=== PATIENT | female | born 1980 | race Caucasian/White ===

== ENCOUNTER → 2021-12-18 01:55 | Outpatient (CLI) | payer MEDICAID, SELFPAY ==
--- NOTE | 2021-12-18 08:06 | DI.CT_ITS ---
Exam(s) CT TEMPORAL BONE W EXAM: CT TEMPORAL BONE W CLINICAL HISTORY: Growth on TM, right,D49.2,H93.299. TECHNIQUE: Imaging Protocol: Axial computed tomography images with coronal and sagittal reformatted images were created and reviewed. CONTRAST MATERIAL: Intravenous: Omnipaque 350 Contrast volume:100 mL Oral: No COMPARISON: No exams were available for comparison FINDINGS: Right Temporal Bone: The cochlea and semicircular canals are unremarkable. The facial nerve canal is well maintained. Th e internal auditory canal is within normal limits. The middle ear ossicles are unremarkable. The sc utum and tegmen are within normal limits. There is a 0.4 x 0.4 cm soft tissue mass on the external s patricia of the right tympanic membrane. The external auditory canal and mastoid air cells are normal. The carotid canal and jugular foramen a re within normal limits. The temporomandibular joint is unremarkable. Left Temporal Bone: The cochleae and semicircular canals are unremarkable. The facial nerve canal is well maintained. T he internal auditory canal is within normal limits. The middle ear ossicles are unremarkable. The s cutum and tegmen are within normal limits. The external auditory canal and mastoid air cells are normal. The carotid canal and jugular foramen a re within normal limits. The temporomandibular joint is unremarkable. There is complete opacification of the left maxillary sinus. There is thickening of the wall of the left maxillary sinus. The findings are suggestive of chronic sinus disease. There is opacification of several left ethmoid air cells. The remaining visualized paranasal sinuses are clear. IMPRESSION: 0.4 x 0.4 cm soft tissue mass on the EAC side of the right tympanic membrane. Differential considera tions include keratosis opt to rinse, medial canal fibrosis, benign debris, or neoplasm. RADIATION DOSE DELIVERED: 359.06mGy.cm Total DLP DATA REPOSITORY: All CT scans at this facility are submitted to the National Radiology Data Registry (NRDR) Dose Index Registry (DIR) with the [employer] (A[employer]). RADIATION OPTIMIZATION: All CT scans at this facility use at least one of these dose optimization te chniques: automated exposure control; mA and/or kV adjustment per patient size (includes targeted exa ms where dose is matched to clinical indication); or iterative reconstruction.
[2021-12-18] MEDS: Omnipaque 350 MG/ML 100 ML BTL IJ (15:53)
[2021-12-18] MEDS: Normal Saline Flush 10 ML SYR IVP (15:54)
== END ==
PROVIDERS: PCP Family Medicine; Visit Provider Registered Nurse Maternal Newborn
DX: D49.2 Neoplasm of unspecified behavior of bone, soft tissue, and skin (principal)
CPT/HCPCS: 70481; J3490

== ENCOUNTER 2022-02-11 08:12 | Day surgery (SDC) | payer MEDICAID, SELFPAY ==
[2022-02-11] VITALS (10 sets, daily range): BP systolic 121–137; BP diastolic 78–105; PULSE 82–98; RESP 8–20; TEMP 36.7–36.8; O2SAT 94–99; BMI 29.9
[2022-02-11] MEDS: Lactated Ringers 1,000 ML 100 ML IV (09:50)
--- NOTE | 2022-02-11 10:28 | W.ANESPRE ---
General Info Date of Service Date Performed: 02/11/22 Height: 5 ft 8 in Weight: 89.5 kg Body Mass Index (BMI): 29.9 Surgical Procedure: Operation Date: 02/11/22 11:25 Proposed Procedure Side Surgeon p Excision of Ear Drum Mass Right Miguel Salgado MD Meds Allergies and Home Medications Allergies Allergy/AdvReac Type Severity Reaction Status Date / Time amitriptyline Allergy irritabiltiy, Verified 02/11/22 08:57 fatigue codeine Allergy rash Verified 02/11/22 08:57 ethinyl estradiol Allergy Verified 02/11/22 08:57 [From Seasonale ()] guaifenesin [From Robitussin] Allergy nausea, Verified 02/11/22 08:57 itching levonorgestrel Allergy Verified 02/11/22 08:57 [From Seasonale ()] morphine Allergy Verified 02/11/22 08:57 prednisone Allergy irritabilit Verified 02/11/22 08:57 y acetaminophen [From Vicodin] AdvReac Severe Nausea, Unverified 02/11/22 08:57 Rash hydrocodone bitartrate AdvReac Severe Nausea, Unverified 02/11/22 08:57 [From Vicodin] Rash pregabalin [From Lyrica] AdvReac Severe Nausea Unverified 02/11/22 08:57 latex AdvReac Intermediate RAsh Unverified 02/11/22 08:57 anesthetic Allergy Uncoded 02/11/22 08:57 Home Medication Medication Instructions Recorded albuterol sulfate 90 mcg/actuation 2 puff inhalation Q4H PRN 11/14/21 aerosol inhaler escitalopram oxalate 10 mg tablet 10 mg PO DAILY 11/14/21 (Lexapro) escitalopram oxalate 5 mg tablet 5 mg PO DAILY 11/14/21 famotidine [Pepcid AC Maximum PO DAILY 11/14/21 Strength] fluticasone propionate 50 1 spray intranasal DAILY 11/14/21 mcg/actuation nasal spray,suspension ibuprofen 200 mg tablet (Advil) 200 mg PO Q6H PRN 11/14/21 levonorgestrel 20 mcg/24 hours (8 1 device intrauterine ONCE 11/14/21 yrs) 52 mg intrauterine device (Mirena) methylphenidate HCl 10 mg tablet 10 mg PO BID 11/14/21 (Ritalin) multivitamin 1 tab PO DAILY 11/14/21 omeprazole 40 mg capsule,delayed 40 mg PO DAILY PRN 11/14/21 release sumatriptan 20 mg/actuation nasal 20 mg intranasal Q2H 11/14/21 spray albuterol sulfate 90 mcg/actuation inhalation 02/08/22 aerosol inhaler (ProAir HFA) timolol maleate 0.5 % eye drops 2 drp HS 02/08/22 Current Visit Medications: Current Medications Generic Name Dose Route Start Last Admin Trade Name Lenka PRN Reason Stop Dose Admin Tranexamic Acid 1,000 mg/ 60 mls @ 360 mls/hr 02/11/22 06:00 Sodium Chloride IVPB 02/11/22 16:00 DIRECTED DAMION Ringer's Solution 1,000 mls @ 100 mls/hr 02/11/22 09:46 02/11/22 09:50 IV 100 mls/hr INFUSION DAMION Administration IV Miscellaneous Supplies 1 each 02/11/22 06:00 Iv Access IV 03/10/22 23:59 DIRECTED DAMION Sodium Chloride 0 ml 02/11/22 06:00 Normal Saline Flush 10 Ml Syr IV 03/10/22 23:59 PRN PRN Sodium Chloride 0 ml 02/11/22 06:00 Normal Saline 10 Ml Vial IJ 03/10/22 23:59 DIRECTED PRN Sterile Water 0 ml 02/11/22 06:00 Water,Injection,Sterile 10 Ml Vial IJ 03/10/22 23:59 DIRECTED PRN PFSH Active Problems Active Problems: Problem Status Onset Code Growth of ear canal D49.2 Abnormal auditory perception H93.299 Mass of right ear H93.8X1 Medical History Medical History ADD (attention deficit disorder) Alcohol abuse Amenorrhea Anxiety Bacterial meningitis Chest pain Chronic recurrent pilonidal cyst Chronic right shoulder pain Depression DVT (deep vein thrombosis) in Fibrocystic breast disease (FCBD) in female GERD (gastroesophageal reflux disease) H/O abnormal cervical Papanicolaou smear H/O drug abuse recovery 2013 H/O multiple concussions H/O suicide attempt Insomnia Migraine OCD (obsessive compulsive disorder) Palpitations Perianal cyst Placenta previa PTSD (post-traumatic stress disorder) Rubella Seizure disorder Seizures Pt reports resolved; related to Stress/lack of sleep; last in 2014 SOB (shortness of breath) SVT (supraventricular tachycardia) UTI (urinary tract infection) Medical History Comments:: 3xweek, Cong gordon Surgical History Surgical History Biopsy of breast (~2004) Reports > 20 surgeries to breasts during the time from 8512-6388. 20 surgeries to right breast. 2 surgeries to left breast. Multiple surgeries to remove cysts, clear out ducts, repair fistules. Surgeries at [facility], [facility]. Excision, Pilonidal Cyst H/O section H/O dilation and curettage H/O partial mastectomy History of excision of pilonidal cyst Tobacco Smoking/Tobacco Use Status: Current every day Tobacco Type: cigarettes Smoking packs per day: 0.5 Smoking cigarettes per day: 10.0 Alcohol Alcohol Intake: current Alcohol intake frequency: holidays/special occasions only Substance Use Substance use: Occasionally Substance use type: marijuana Details: 3xweek Vital Signs and Lab Results Vital Signs Most Recent Vital Signs in EMR: Most Recent Vital Signs Temp Pulse Resp BP Pulse Ox 36.7 C 91 H 16 130/105 H 97 02/11/22 09:00 02/11/22 09:00 02/11/22 09:00 02/11/22 09:00 02/11/22 09:00 Point of Care Results Point of Care Results: POC- Test(urine) Negative 02/11/22 09:30 Lab Results Blood Type / Crossmatch: No Data to Display Complete Blood Count: No Data to Display Complete Metabolic Panel: No Data to Display Liver Function Panel: No Data to Display Coagulation Panel: No Data to Display Cardiac Panel: No Data to Display Arterial Blood Gas: No Data to Display Venous Blood Gas: No Data to Display Pancreas Panel: No Data to Display Thyroid Panel: No Data to Display Infectious Disease: No Data to Display Blood Cultures: No Data to Display Toxicology Panel: No Data to Display Panel: No Data to Display Anesthesia Assessment and Plan Anesthesia History Personal History: No History of Anesthesia Complications Family History: No Family History of Anesthesia Complications Exercise Tolerance Exercise Tolerance: Metabolic Equivalents>4 Cardiac & Pulmonary Exam Cardiac Exam: Normal S1/S2 Heart Sounds Pulmonary Exam: Clear Bilateral Breath Sounds Implantable Cardiac Device Does patient have a Pacemaker or an ICD?: No Airway Exam Known Difficult Airway: No Mallampati Class: 3 Mouth Opening: Narrow (< 3cm) Thyromental Distance: Greater than 3 cm Neck Range of Motion: Full ROM Neck Circumference: Normal Teeth Condition: Normal Dentition ASA Classification ASA Score: ASA 2 Emergency Case?: No NPO Status NPO Status: NPO Clears >2 hours, Solids >8 hours Status Status: Negative HCG Anesthesia Plan Resuscitation Status: Full Code Anesthesia Technique: General Anesthesia Airway Planned: LMA Monitors Used: Standard Monitors Preoperative Comments:: 41 yo female for removal of ear drum mass. Sig PMHx: ADD/anxiety, DVT with preg, GERD (well controlled), former drug abuse, sz (due to lack of sleep and stress a few years ago, no factor currently), SVT/palpitations, current cannabis/tobacco smoker, occ EtOH.
--- NOTE | 2022-02-11 11:27 | ENT_PTH ---
PATIENT: Paulette Fonseca LOC: [facility] U#:[id number] AGE/SX: 41/F ROOM: RE02/11/[address]: Miguel Salgado MD : 1980 BED: DIS: 02/11/2022 SPEC #: [id number] RECD: 02/11/22 13:02 STATUS: VANGIE REJose #: [id number] MITZI: 02/11/22 11:[address]: Miguel Salgado DEPT: Surgical Specimen RECD BY: Soledad Pruitt ENTERED: 02/11/22 13:03 SP TYPE: Ent OTHR DR: Katie Cesar Tissues: 1 - EAR(INNER) Procedures: GROSS AND MICRO LEVEL 4 Comments: [id number]
--- NOTE | 2022-02-11 11:36 | W.PM.DSUDISC ---
Date of service: 02/11/22 Time of Service: 11:36 Discharge Plan Disposition Patient Disposition: HOME Condition: Good Discharge Details Reason For Visit: Excision of right tympanic membrane mass Attending Provider: Mgiuel Salgado Primary Care Provider: Katie Cesar Home Meds and New Rx's Prescriptions: New ciprofloxacin-dexamethasone [Ciprodex] 0.3-0.1 % drops,suspension 4 drp otic (ear) BID 7 Days Qty: 7.5 0RF Rx Instructions: Right ear only Discontinued timolol maleate 0.5 % drops 2 drp HS Label Comments: PLACE 3 DROPS INTO RIGHT EAR EVERYDAY FOR 2 WEEKS DIRECTED No Action Mirena 20 mcg/24 hours (7 yrs) 52 mg intrauterine device 1 device intrauterine ONCE Rx Instructions: as a single dose famotidine [Pepcid AC Maximum Strength] PO DAILY ibuprofen [Advil] 200 mg tablet 200 mg PO Q6H PRN multivitamin Tablet 1 tab PO DAILY sumatriptan 20 mg/actuation spray,non-aerosol 20 mg intranasal Q2H Rx Instructions: administer into one nostril as a single dose albuterol sulfate 90 mcg/actuation HFA aerosol inhaler 2 puff inhalation Q4H PRN omeprazole 40 mg capsule,delayed release(DR/EC) 40 mg PO DAILY PRN fluticasone propionate 50 mcg/actuation spray,suspension 1 spray intranasal DAILY Rx Instructions: administer into each nostril escitalopram oxalate [Lexapro] 10 mg tablet 10 mg PO DAILY escitalopram oxalate 5 mg tablet 5 mg PO DAILY methylphenidate HCl [Ritalin] 10 mg tablet 10 mg PO BID albuterol sulfate [ProAir HFA] 90 mcg/actuation HFA aerosol inhaler INHALATION Label Comments: INHALE 2 PUFFS BY MOUTH AND INTO THE LUNGS EVERY 4 HOURS NEEDED Discharge Instructions Additional Instructions: Expect bloody discharge from the right ear for the next few days. Keep the right ear dry until I see you back. Call with any purulent drainage. Use the Ciprodex drops as directed. My cell phone number is [phone] if there are any emergent concerns or problems. If for some reason you cannot reach me and you feel it is an emergency, please go to the emergency room. Ibuprofen for pain control Referrals: Miguel Salgado MD [ [facility] STAFF PHYSICIAN] - (2 weeks, please call for appointment prior to patient's departure) Activity:: Avoid strenuous activity for the next 24 hours Activity:: No driving for 48 hours Diet:: As Tolerated
--- NOTE | 2022-02-11 11:43 | W.PM.OP ---
Date of service: 02/11/22 Time of Service: 11:43 Operative Note Operative Note DATE OF PROCEDURE: 02/11/22 PRE-OP DIAGNOSIS: Right ear tympanic membrane mass POST-OP DIAGNOSIS: same PROCEDURE: Excision of right tympanic membrane mass SURGEON: Miguel Salgado ANESTHESIA TYPE: General LMA/ETT Refer to Anesthesia Record ESTIMATED BLOOD LOSS: 1 PATHOLOGY: other (Tympanic membrane mass) COMPLICATIONS: None Patient was transported to: PACU Patient's condition: stable Indications: Patient with a right-sided vascular tympanic membrane mass attached to the umbo. As result unsuccessful.'s were explained to the patient regarding further management. She elected to undergo the above procedure.. Findings: Right tympanic membrane mass attached length. Solitary. Soft tissue. No obvious middle ear extension Procedure Description: Patient underwent general anesthesia with LMA. She was then prepped and draped in appropriate fashion. Using operating microscope with a 250 mm lens, and appropriate sized ear speculum, the right ear canal was examined. This revealed the tympanic membrane mass to be unchanged. Epinephrine at 03/999 was applied topically to the mass, and 5 minutes was allowed to elapse. The edges were then carefully from the tympanic membrane, and the mass was then removed piecemeal from the lateral aspect of the tympanic membrane. The osseous structures of the umbo was not exposed. Once been accomplished, and after ensuring relative hemostasis, and verified there was no residual mass and no obvious retraction pockets or middle ear masses, the patient was awakened and transported to the recovery room in stable condition. I was present throughout the entire case.
[2022-02-11] MEDS: Ketorolac 30 MG/ML VIAL IVP (11:49)
[2022-02-11] MEDS: LORazepam 2 MG/ML VIAL 0.5 MG IVP (12:04)
--- NOTE | 2022-02-11 12:25 | W.ANESPOSTOP ---
Postoperative Evaluation Date, Time and Location Date Performed: 02/11/22 Time Performed: 12:25 Patient Location: PACU Vital Signs Most Recent Imported Vital Signs: Most Recent Vital Signs Temp Pulse Resp BP Pulse Ox 36.8 C 83 15 137/92 H 99 02/11/22 12:21 02/11/22 12:21 02/11/22 12:21 02/11/22 12:21 02/11/22 12:21 Pain Score Most Recent Pain Score: Most Recent Pain Score Pain Level 5 02/11/22 12:21 Assessment Mental Status: Awake (Alert & Oriented to Patient Baseline) Airway and Respiratory Function: Patent airway with normal (patient baseline) respiratory exam Cardiovascular Function: Hemodynamically Stable Hydration Status: Adequately Hydrated Nausea & Vomiting: No Nausea or Vomiting Pain: Pain is Moderate or Severe (she is requesting hydromorphone, discussed lorazapam and ketorlac, and if those don't work next step would be an opioid. ) Postoperative Pain Management: Pain being addressed with medication Peripheral Nerve Block: Patient did not receive a nerve block
[2022-02-11] MEDS: Normal Saline Flush 10 ML SYR (12:52)
[2022-02-11] MEDS: HYDROmorphone 2 MG/ML SYR IVP (12:52)
[2022-02-11] MEDS: ACETAMINOPHEN 1,000 MG/100 ML BTL 400 MG IVPB (13:07)
== END 2022-02-11 13:48 | disposition home or self-care (01) ==
PROVIDERS: PCP Family Medicine; Visit Provider Otolaryngology
PROC: (CPT 69540; principal; 2022-02-11 11:15)
DX: D18.01 Hemangioma of skin and subcutaneous tissue (principal); F17.210 Nicotine dependence, cigarettes, uncomplicated; F10.10 Alcohol abuse, uncomplicated; K21.9 Gastro-esophageal reflux disease without esophagitis
CPT/HCPCS: 69550; 81025; 88305; J0131; J1100; J1885; J2060; J2250; J2405; J2704